=== PATIENT | female | born 1995 | race Hispanic/Latino ===

== ENCOUNTER 2024-09-12 16:02 | Emergency (ER) | payer OTHER ==
[~2024-09-12] VITALS: Ht 152.4 cm; Wt 80.4 kg
[2024-09-12 19:35] VITALS: BP 138/101; TEMP 98.4; O2SAT 97
[2024-09-12 21:55] LABS: GC DNA AMPLIFICATION NEGATIVE (NEGATIVE)
== END 2024-09-12 21:42 | disposition home or self-care (01) ==
LOC: M ED 16:02
DX: N93.9 Abnormal uterine and vaginal bleeding, unspecified (principal)